=== PATIENT | female | born 1950 | race Caucasian/White ===

== ENCOUNTER 2019-02-13 11:57 | Inpatient (IN) ==
[2019-02-13] MEDS ORDERED: methylPREDNISolone SOD SUC 125 MG/2 ML VIAL IV STA (12:16)
[2019-02-13] MEDS ORDERED: ONDANSETRON 4 MG/2 ML VIAL IV STA (12:16)
[2019-02-13] MEDS ORDERED: cefTRIAXone 1,000 MG in SODIUM CHLORIDE 0.9% 100 ML IV STA (12:16)
[2019-02-13] MEDS ORDERED: AZITHROMYCIN INJ 500 MG in SODIUM CHLORIDE 0.9% 250 ML IV STA (12:16)
[2019-02-13] MEDS ORDERED: ALBUTEROL 2.5 MG/3 ML NEB RESP TX SCH (12:30)
[2019-02-13 12:51] LABS: ABG Base Excess 3.4 MMOL/L (-2.5-2.5); ABG HCO3 27.2 MMOL/L (20-26); ABG Oxygen Saturation 87.5 % (95-100); ABG PCO2 60.3 MM HG (35-48); ABG PH 7.321 (7.35-7.45); ABG PO2 57.4 MM HG (80-95)
[2019-02-13 13:04] LABS: Basophils % 0.7 % (0.0-0.8); Eosinophils # 0.1 10*3/uL (0.0-0.87); Eosinophils % 1.2 % (0.00-10.9); Hematocrit 40.9 VOL% (35.7-47.0); Hemoglobin 11.8 GM/DL (12.0-16.0); Immature Granulocytes % 0.2 %; Immature Granulocytes Absolute 0.01 #; Lymphocytes # 1.2 10*3/uL (1.4-4.0); Lymphocytes % 19.7 % (21.3-54.2); Mean Corpuscular HGB Conc 28.9 GM/DL (32-36); Mean Corpuscular Volume 87.8 FL (87-102); Mean Platelet Volume 9.9 FL (9.6-12.0); Monocytes % 9.8 % (1.7-12.7); Neutrophils % 68.4 % (38.7-73.9); Platelet Count 216 T/CUMM (130-400); Red Blood Count 4.66 MC/CUMM (3.8-5.5); Red Cell Distribution Width 19.6 % (9.3-17.3); White Blood Count 5.8 T/CUMM (4-12)
[2019-02-13 13:22] LABS: Anisocytosis 1+; Macrocytosis 1+; Platelet Estimate Normal; Polychromasia Slight
[2019-02-13 13:24] LABS: Alanine Aminotransferase 9 U/L (13-56); Albumin 3.2 G/DL (3.4-5.0); Alkaline Phosphatase 44 U/L (45-117); Aspartate Amino Transferase 9 U/L (0-37); Bilirubin,Total < 0.39 MG/DL (0.2-1.0); Blood Urea Nitrogen 20 MG/DL (7-18); Calcium 7.9 MG/DL (8.5-10.1); Estimated Glom Filtration Rate 91 ML/MIN; Glucose 81 MG/DL (74-106); Osmolality,Calculated 282.3 MOS/KG (273-304); Total Protein 6.9 G/DL (6.4-8.3); Troponin I < 0.015 NG/ML (0.00-0.045)
[2019-02-13 13:26] LABS: PT Patient Result 10.8 SECS (9.6-12.2); Partial Thromboplastin Time 34.1 SECS (20.8-36.0)
[2019-02-13] MEDS ORDERED: ONDANSETRON 4 MG/2 ML VIAL IV PRN (14:31)
[2019-02-13] MEDS ORDERED: DEXTROSE 50% 25 GM/50 ML VIAL IV PRN (14:44)
[2019-02-13] MEDS ORDERED: GLUCAGON 1 MG VIAL IM PRN (14:44)
[2019-02-13] MEDS ORDERED: DEXTROSE 10% 250 ML BAG IV PRN (15:19)
[2019-02-13] MEDS: INSULIN LISPRO 100 UNIT/ML SUBCUT SCH ×2 (15:51→20:23)
[2019-02-13] MEDS: NICOTINE 21 MG/24 HR PATCH TRANSDERM SCH (16:28)
[2019-02-13] MEDS: ENOXAPARIN 40 MG/0.4 ML SYRINGE SUBCUT SCH (16:28)
[2019-02-13 16:58] LABS: Apearance,Urine Slightly Hazy (Clear); Bacteria,Urine Few /HPF (Few); Bilirubin,Urine Negative (Negative); Blood, Urine Small mg/dL (Negative); Glucose,Urine (UA) Negative (Negative); Ketones,Urine 20 mg/dL (Negative); Mucus,Urine Occasional /LPF (Occasional); Nitrite,Urine Negative (Negative); Protein,Urine Negative; RBC,Urine 5 /HPF (0-4); Squamous Epithelial Cell,Urine Occasional /HPF (0-10); Urine Color Yellow (Yellow); Urine Specific Gravity 1.017 (1.001-1.035); Urine Urobilinogen < 2.0 EU/DL (0.2-1.0); WBC,Urine 33 /HPF (0-6)
[2019-02-13] MEDS: DEXTROSE 5% 1,000 ML IV SCH (17:11)
[2019-02-13] MEDS: BUDESONIDE 0.5 MG/2 ML NEB RESP TX SCH (19:08)
[2019-02-13 19:09] LABS: Barbiturates Screen,Urine Positive (Negative); Benzodiazepines Screen,Urine Negative (Negative); Cannabinoid Screen,Urine Negative (Negative); Opiate Screen,Urine Negative (Negative); Phencyclidine Screen,Urine Negative (Negative)
[2019-02-13] MEDS: methylPREDNISolone SOD SUC 125 MG/2 ML VIAL IV SCH (20:22)
[2019-02-13] MEDS ORDERED: methylPREDNISolone SOD SUC 40 MG/1 ML VIAL IV SCH (21:00)
[2019-02-13] MEDS: cefTRIAXone 2,000 MG in SYRINGE 1 EACH IV SCH (21:05)
[2019-02-14] MEDS: methylPREDNISolone SOD SUC 125 MG/2 ML VIAL IV SCH ×4 (04:28→20:10)
[2019-02-14 05:27] LABS: ABG Base Excess 4.4 MMOL/L (-2.5-2.5); ABG HCO3 28.2 MMOL/L (20-26); ABG Oxygen Saturation 93.4 % (95-100); ABG PCO2 38.7 MM HG (35-48); ABG PH 7.471 (7.35-7.45); ABG PO2 61.3 MM HG (80-95); Allen Test Positive; Pt O2 Delivery Device BIPAP
[2019-02-14 06:06] LABS: Basophils % 0.5 % (0.0-0.8); Hematocrit 38.5 VOL% (35.7-47.0); Hemoglobin 11.3 GM/DL (12.0-16.0); Immature Granulocytes % 0.5 %; Immature Granulocytes Absolute 0.02 #; Lymphocytes # 0.5 10*3/uL (1.4-4.0); Lymphocytes % 12.8 % (21.3-54.2); Mean Corpuscular HGB Conc 29.4 GM/DL (32-36); Mean Corpuscular Volume 87.1 FL (87-102); Mean Platelet Volume 9.7 FL (9.6-12.0); Monocytes % 1.3 % (1.7-12.7); Neutrophils % 84.9 % (38.7-73.9); Platelet Count 197 T/CUMM (130-400); Red Blood Count 4.42 MC/CUMM (3.8-5.5); Red Cell Distribution Width 18.8 % (9.3-17.3); White Blood Count 3.8 T/CUMM (4-12)
[2019-02-14 06:08] LABS: Calcium 7.5 MG/DL (8.5-10.1); Osmolality,Calculated 287.3 MOS/KG (273-304); Thyroid Stimulating Hormone 0.258 uIU/ml (0.358-3.74)
[2019-02-14] MEDS: BUDESONIDE 0.5 MG/2 ML NEB RESP TX SCH ×2 (07:42→19:39)
[2019-02-14] MEDS: FERROUS SULFATE 325 MG TABLET PO SCH (08:38)
[2019-02-14] MEDS: CALCIUM (CARBONATE)/VITAMIN D 600 MG-400 UNIT TABLET PO SCH (08:38)
[2019-02-14] MEDS: PARoxetine 20 MG TABLET PO SCH (08:38)
[2019-02-14] MEDS: PANTOPRAZOLE 40 MG TABLET PO SCH (08:39)
[2019-02-14] MEDS: PRIMIDONE 50 MG TABLET PO SCH (08:39)
[2019-02-14] MEDS: INSULIN LISPRO 100 UNIT/ML SUBCUT SCH ×4 (08:39→20:11)
[2019-02-14] MEDS: NICOTINE 21 MG/24 HR PATCH TRANSDERM SCH (08:39)
[2019-02-14] MEDS: Fluticasone Furoate-Vilanterol [Breo Ellipta] 1 PUFF INH SCH (08:40)
[2019-02-14] MEDS ORDERED: METHOCARBAMOL 500 MG TABLET PO PRN (11:20)
[2019-02-14] MEDS: AZITHROMYCIN INJ 500 MG in SODIUM CHLORIDE 0.9% 250 ML IV SCH (15:55)
[2019-02-14] MEDS: ENOXAPARIN 40 MG/0.4 ML SYRINGE SUBCUT SCH (15:56)
[2019-02-14] MEDS: DEXTROSE 5% 1,000 ML IV SCH (17:26)
[2019-02-14] MEDS: cefTRIAXone 2,000 MG in SYRINGE 1 EACH IV SCH (21:47)
[2019-02-15] MEDS: methylPREDNISolone SOD SUC 125 MG/2 ML VIAL IV SCH ×4 (04:21→21:13)
[2019-02-15 06:17] LABS: Osmolality,Calculated 285.3 MOS/KG (273-304)
[2019-02-15 06:18] LABS: Basophils % 0.1 % (0.0-0.8); Hematocrit 42.8 VOL% (35.7-47.0); Hemoglobin 12.5 GM/DL (12.0-16.0); Immature Granulocytes % 0.4 %; Immature Granulocytes Absolute 0.03 #; Lymphocytes # 0.7 10*3/uL (1.4-4.0); Lymphocytes % 8.4 % (21.3-54.2); Mean Corpuscular HGB Conc 29.2 GM/DL (32-36); Mean Corpuscular Volume 85.9 FL (87-102); Mean Platelet Volume 9.7 FL (9.6-12.0); Monocytes % 3.8 % (1.7-12.7); Neutrophils % 87.3 % (38.7-73.9); Platelet Count 232 T/CUMM (130-400); Red Blood Count 4.98 MC/CUMM (3.8-5.5); Red Cell Distribution Width 18.6 % (9.3-17.3); White Blood Count 7.9 T/CUMM (4-12)
[2019-02-15] MEDS: BUDESONIDE 0.5 MG/2 ML NEB RESP TX SCH ×2 (08:11→20:15)
[2019-02-15] MEDS: CALCIUM (CARBONATE)/VITAMIN D 600 MG-400 UNIT TABLET PO SCH (08:24)
[2019-02-15] MEDS: PARoxetine 20 MG TABLET PO SCH (08:24)
[2019-02-15] MEDS: PRIMIDONE 50 MG TABLET PO SCH (08:24)
[2019-02-15] MEDS: FERROUS SULFATE 325 MG TABLET PO SCH (08:24)
[2019-02-15] MEDS: NICOTINE 21 MG/24 HR PATCH TRANSDERM SCH (08:25)
[2019-02-15] MEDS: INSULIN LISPRO 100 UNIT/ML SUBCUT SCH ×4 (08:25→21:11)
[2019-02-15] MEDS: Fluticasone Furoate-Vilanterol [Breo Ellipta] 1 PUFF INH SCH (08:25)
[2019-02-15] MEDS: PANTOPRAZOLE 40 MG TABLET PO SCH (08:25)
[2019-02-15] MEDS: ACETAMINOPHEN 325 MG TABLET PO PRN (12:25)
[2019-02-15] MEDS: AZITHROMYCIN INJ 500 MG in SODIUM CHLORIDE 0.9% 250 ML IV SCH (15:22)
[2019-02-15] MEDS: ENOXAPARIN 40 MG/0.4 ML SYRINGE SUBCUT SCH (15:27)
[2019-02-15] MEDS: DEXTROSE 5% 1,000 ML IV SCH (15:28)
[2019-02-15] MEDS: metFORMIN 850 MG TABLET PO SCH (21:11)
[2019-02-15] MEDS: cefTRIAXone 2,000 MG in SYRINGE 1 EACH IV SCH (21:15)
[2019-02-16] MEDS: methylPREDNISolone SOD SUC 125 MG/2 ML VIAL IV SCH ×4 (04:16→21:00)
[2019-02-16 05:16] LABS: Basophils % 0.1 % (0.0-0.8); Hematocrit 41.1 VOL% (35.7-47.0); Hemoglobin 12.1 GM/DL (12.0-16.0); Immature Granulocytes % 0.4 %; Immature Granulocytes Absolute 0.03 #; Lymphocytes # 0.7 10*3/uL (1.4-4.0); Mean Corpuscular HGB Conc 29.4 GM/DL (32-36); Mean Corpuscular Volume 85.4 FL (87-102); Mean Platelet Volume 9.8 FL (9.6-12.0); Monocytes % 6.5 % (1.7-12.7); Platelet Count 235 T/CUMM (130-400); Red Blood Count 4.81 MC/CUMM (3.8-5.5); Red Cell Distribution Width 18.3 % (9.3-17.3); White Blood Count 8.3 T/CUMM (4-12)
[2019-02-16] MEDS: BUDESONIDE 0.5 MG/2 ML NEB RESP TX SCH ×2 (07:34→20:09)
[2019-02-16] MEDS: INSULIN LISPRO 100 UNIT/ML SUBCUT SCH ×4 (09:48→21:02)
[2019-02-16] MEDS: CALCIUM (CARBONATE)/VITAMIN D 600 MG-400 UNIT TABLET PO SCH (09:56)
[2019-02-16] MEDS: metFORMIN 850 MG TABLET PO SCH ×2 (09:56→21:00)
[2019-02-16] MEDS: PANTOPRAZOLE 40 MG TABLET PO SCH (09:56)
[2019-02-16] MEDS: PRIMIDONE 50 MG TABLET PO SCH (09:56)
[2019-02-16] MEDS: FERROUS SULFATE 325 MG TABLET PO SCH (09:56)
[2019-02-16] MEDS: PARoxetine 20 MG TABLET PO SCH (09:56)
[2019-02-16] MEDS: AZITHROMYCIN INJ 500 MG in SODIUM CHLORIDE 0.9% 250 ML IV SCH (09:57)
[2019-02-16] MEDS: NICOTINE 21 MG/24 HR PATCH TRANSDERM SCH (09:57)
[2019-02-16] MEDS: Fluticasone Furoate-Vilanterol [Breo Ellipta] 1 PUFF INH SCH (10:05)
[2019-02-16] MEDS: cefTRIAXone 2,000 MG in SYRINGE 1 EACH IV SCH (11:01)
[2019-02-16] MEDS: ENOXAPARIN 40 MG/0.4 ML SYRINGE SUBCUT SCH (15:07)
[2019-02-16] MEDS: DEXTROSE 5% 1,000 ML IV SCH (17:34)
[2019-02-17] MEDS: methylPREDNISolone SOD SUC 125 MG/2 ML VIAL IV SCH (03:33)
[2019-02-17] MEDS: BUDESONIDE 0.5 MG/2 ML NEB RESP TX SCH ×2 (07:21→19:10)
[2019-02-17] MEDS: DEXTROSE 5% 1,000 ML IV SCH (07:50)
[2019-02-17] MEDS: NICOTINE 21 MG/24 HR PATCH TRANSDERM SCH (09:07)
[2019-02-17] MEDS: metFORMIN 850 MG TABLET PO SCH ×2 (09:07→20:28)
[2019-02-17] MEDS: PANTOPRAZOLE 40 MG TABLET PO SCH (09:07)
[2019-02-17] MEDS: AZITHROMYCIN 250 MG TABLET PO SCH (09:07)
[2019-02-17] MEDS: FERROUS SULFATE 325 MG TABLET PO SCH (09:07)
[2019-02-17] MEDS: CEFDINIR 300 MG CAPSULE PO SCH ×2 (09:07→20:28)
[2019-02-17] MEDS: PRIMIDONE 50 MG TABLET PO SCH (09:07)
[2019-02-17] MEDS: predniSONE 20 MG TABLET PO SCH ×2 (09:07→20:28)
[2019-02-17] MEDS: PARoxetine 20 MG TABLET PO SCH (09:07)
[2019-02-17] MEDS: CALCIUM (CARBONATE)/VITAMIN D 600 MG-400 UNIT TABLET PO SCH (09:07)
[2019-02-17] MEDS: INSULIN LISPRO 100 UNIT/ML SUBCUT SCH ×4 (09:08→21:00)
[2019-02-17] MEDS: Fluticasone Furoate-Vilanterol [Breo Ellipta] 1 PUFF INH SCH (09:13)
[2019-02-17] MEDS: ENOXAPARIN 40 MG/0.4 ML SYRINGE SUBCUT SCH (16:36)
[2019-02-18] MEDS ORDERED: MAGNESIUM HYDROXIDE SUSP 30 ML UDCUP PO PRN (06:54)
[2019-02-18] MEDS: INSULIN LISPRO 100 UNIT/ML SUBCUT SCH ×4 (08:31→22:12)
[2019-02-18] MEDS: metFORMIN 850 MG TABLET PO SCH ×2 (10:04→22:19)
[2019-02-18] MEDS: AZITHROMYCIN 250 MG TABLET PO SCH (10:04)
[2019-02-18] MEDS: NICOTINE 21 MG/24 HR PATCH TRANSDERM SCH (10:04)
[2019-02-18] MEDS: CALCIUM (CARBONATE)/VITAMIN D 600 MG-400 UNIT TABLET PO SCH (10:05)
[2019-02-18] MEDS: ACETAMINOPHEN 325 MG TABLET PO PRN (10:05)
[2019-02-18] MEDS: CEFDINIR 300 MG CAPSULE PO SCH ×2 (10:05→22:19)
[2019-02-18] MEDS: PANTOPRAZOLE 40 MG TABLET PO SCH (10:06)
[2019-02-18] MEDS: predniSONE 20 MG TABLET PO SCH ×2 (10:06→22:19)
[2019-02-18] MEDS: PRIMIDONE 50 MG TABLET PO SCH (10:06)
[2019-02-18] MEDS: FERROUS SULFATE 325 MG TABLET PO SCH (10:06)
[2019-02-18] MEDS: PARoxetine 20 MG TABLET PO SCH (10:06)
[2019-02-18] MEDS: BUDESONIDE 0.5 MG/2 ML NEB RESP TX SCH ×2 (11:00→19:41)
[2019-02-18] MEDS: Fluticasone Furoate-Vilanterol [Breo Ellipta] 1 PUFF INH SCH (12:32)
[2019-02-18] MEDS: ENOXAPARIN 40 MG/0.4 ML SYRINGE SUBCUT SCH (17:00)
[2019-02-19 07:22] VITALS: BP 151/56
[2019-02-19] MEDS: BUDESONIDE 0.5 MG/2 ML NEB RESP TX SCH (07:51)
[2019-02-19] MEDS: INSULIN LISPRO 100 UNIT/ML SUBCUT SCH (08:41)
[2019-02-19] MEDS ORDERED: FLUCONAZOLE 200 MG TABLET PO SCH (09:00)
[2019-02-19] MEDS: metFORMIN 850 MG TABLET PO SCH (09:23)
[2019-02-19] MEDS: NICOTINE 21 MG/24 HR PATCH TRANSDERM SCH (09:23)
[2019-02-19] MEDS: predniSONE 20 MG TABLET PO SCH (09:23)
[2019-02-19] MEDS: FERROUS SULFATE 325 MG TABLET PO SCH (09:23)
[2019-02-19] MEDS: AZITHROMYCIN 250 MG TABLET PO SCH (09:23)
[2019-02-19] MEDS: CALCIUM (CARBONATE)/VITAMIN D 600 MG-400 UNIT TABLET PO SCH (09:23)
[2019-02-19] MEDS: PANTOPRAZOLE 40 MG TABLET PO SCH (09:23)
[2019-02-19] MEDS: CEFDINIR 300 MG CAPSULE PO SCH (09:23)
[2019-02-19] MEDS: PRIMIDONE 50 MG TABLET PO SCH (09:23)
[2019-02-19] MEDS: PARoxetine 20 MG TABLET PO SCH (09:23)
[2019-02-19] MEDS: Fluticasone Furoate-Vilanterol [Breo Ellipta] 1 PUFF INH SCH (09:38)
== END 2019-02-19 11:09 | disposition home or self-care (01) | DRG 189 ==
LOC: N.ED 11:57 → SUATTDRO 14:30 → N.EDINP 14:30 → N.2E 15:16 → N.CC 16:24 → N.2E 02-15 12:47
PROVIDERS: ADMIT Internal Medicine; ATTEND Internal Medicine Cardiovascular Disease